=== PATIENT | male | born 1945 | race Caucasian/White ===

== ENCOUNTER 2018-06-18 02:36 | Inpatient (IN) | payer OTHER ==
[~2018-06-18] VITALS: Ht 165.1 cm; Wt 75.8 kg
[2018-06-18 03:08] LABS: APPEARANCE,URINE Clear (CLEAR); BILIRUBIN,URINE Negative (NEGATIVE); COLOR,URINE Yellow (YELLOW); GLUCOSE, URINE (UA) Negative (NEGATIVE); KETONES,URINE Negative (NEGATIVE); LEUKOCYTE ESTERASE ,URINE Negative (NEGATIVE); NITRATE,URINE Negative (NEGATIVE); OCCULT BLOOD,URINE Negative (NEGATIVE); PROTEIN,URINE Negative (NEGATIVE)
[2018-06-18 03:23] LABS: BASOPHILS % (AUTO) 0.5 % (0.0-5.0); EOSINOPHILS % (AUTO) 1.3 % (0.0-8.0); LYMPHOCYTES % (AUTO) 9.1 % (21.0-51.0); MEAN CORPUSCULAR HEMOGLOBIN 28.1 pg (27.0-33.0); MEAN CORPUSCULAR HGB CONC 33.3 g/dL (32.0-36.0); MEAN CORPUSCULAR VOLUME 84.6 fL (79-99); MONOCYTES % (AUTO) 6.5 % (3.0-13.0); NEUTROPHILS % (AUTO) 82.6 % (40.0-77.0); PLATELET COUNT (AUTO) 213 K/uL (130-400); RED BLOOD CELL COUNT(AUTO) 4.02 MIL/uL (4.50-6.20); RED CELL DISTRIBUTION WIDTH 15.1 % (11.0-15.5); WHITE BLOOD COUNT (AUTO) 6.3 K/uL (4.8-10.8)
[2018-06-18 03:35] LABS: INR 1.07 (0.85-1.15); PARTIAL THROMBOPLASTIN TIME 32.6 SEC (26.3-35.5); PROTHROMBIN TIME 11.2 SEC (9.6-11.6)
[2018-06-18] MEDS ORDERED: LEVOFLOXACIN 750 MG/D5W 150 ML 150 ML ONE (03:40)
[2018-06-18 03:41] LABS: POTASSIUM 4.1 mmol/L (3.5-5.1)
[2018-06-18 03:47] LABS: ALBUMIN 3.5 g/dL (3.5-5.0); BILIRUBIN,TOTAL 0.3 mg/dL (0.2-1.0); TOTAL PROTEIN, SERUM 6.5 g/dL (6.0-8.3)
[2018-06-18] MEDS ORDERED: DEXTROSE 50%-WATER 50 ML DISP.SYRIN IV PRN (04:30)
[2018-06-18] MEDS ORDERED: GLUCAGON 1MG KIT 1 MG ML IM PRN (04:30)
[2018-06-18] MEDS: SODIUM CHLORIDE 0.9% 1000ML 1,000 ML IV SCH ×2 (04:35→18:03)
[2018-06-18] MEDS ORDERED: ONDANSETRON HCL 4 MG/2 ML VIAL IV PRN (04:45)
[2018-06-18] MEDS ORDERED: ACETAMINOPHEN 325 MG TAB PO PRN ×2 (04:45)
[2018-06-18] MEDS ORDERED: NITROGLYCERIN 0.4 MG SL TAB SL PRN (04:45)
[2018-06-18] MEDS ORDERED: ACETAMINOPHEN 325 MG TAB ONE ×2 (04:49→07:30)
[2018-06-18] MEDS ORDERED: SODIUM CHLORIDE 3% FOR INHALATION 4 ML/AMP VIAL.NEB IH ONE (04:49)
[2018-06-18] MEDS ORDERED: IPRATROPIUM/ALBUTEROL SULFATE 3 ML SOLUTION IH ONE ×3 (04:56→13:35)
[2018-06-18 05:01] LABS: HEMOGLOBIN A1C 6.1 % (4.0-6.0)
[2018-06-18] MEDS: MEROPENEM 1 GM VIAL IVP SCH ×3 (06:00→23:30)
[2018-06-18] MEDS ORDERED: MEROPENEM 1 GM VIAL ONE (06:08)
[2018-06-18] MEDS: INSULIN HUMULIN R 100 UNIT/ML 3ML SQ SCH ×4 (07:30→20:56)
[2018-06-18] MEDS: FAMOTIDINE 20MG TAB 20 MG TAB PO SCH ×2 (09:00→21:57)
--- NOTE | 2018-06-18 10:20 | NUR ---
DYSPHAGIA EVALUATION COMPLETED. Pt WITH DIFFICULTY SWALLOWING PILLS. RECOMMEND MBSS AND MECHANICAL SOFT/CHOPPED, THIN LIQUIDS; PILLS WHOLE ONE BY ONE. PATIENT INFORMATION: Pt IS A 73 YEAR OLD MALE REFERRED FOR A BEDSIDE DYSPHAGIA EVALUATION TO RULE OUT ASPIRATION PNEUMONIA. Pt AAOX3 AND SERVED PRIMARY INFORMANT FOR MEDICAL AND SOCIAL HISTORY. Pt COOPERATIVE DURING THE EVALUATION AND REPORTS HE HAS DIFFICULTY SWALLOWING PILLS AND REGURGITATES SOME SOLID FOODS. Pt CURRENTLY ADMITTED SECONDARY TO PNEUMONIA. Pt HAS A PAST MEDICAL HISTORY SIGNIFICANT FOR HYPERTENSION, RECURRENT PNEUMONIA, ASPERGILLOSIS, DIABETES, ATRIAL FIBRILLATION ON CHRONIC ANTICOAGULATION WITH XARELTO, BILATERAL HIP BURSITIS, OBSTRUCTIVE SLEEP APNEA, NON-HODGKIN'S LYMPHOMA-ON REMISSION, IMMUNODEFICIENCY, AAA REPAIR. Pt WITH MISSING PARTIALS DURING THE EVALUATION. EVALUATION: Pt PRESENTS WITH DIFFICULTY SWALLOWING SOLIDS WITH REGURGITATION OF SOLIDS. Pt WITH ADEQUATE ORAL MOTOR COORDINATION, ROM AND STRENGTH. Pt PRESENTS WITH MULTIPLE SWALLOWS PER BOLUS WITH NO OVERT S/S OF ASPIRATION OF COUGH RESPONSE OR THROAT CLEAR. FURTHER EVALUATION IS WARRANTED AT THIS TIME TO RULE OUR SILENT ASPIRATION OR POSSIBLE ENLARGED CRICOPHARYNGEUS MUSCLE. RECOMMENDATION: 1. MBSS 2. MECHANICAL SOFT/CHOPPED, THIN LIQUIDS; PILLS WHOLE WITH LIQUIDS ONE BY ONE. RESULTS AND RECOMMENDATIONS WERE COMMUNICATED WITH NURSE MARLEN. SHE VERBALIZED AGREEMENT WITH RECOMMENDATIONS. G-CODES SWALLOWING: [id number] Addendum: 06/18/18 at 1041 by DORETHA LOPEZ, JACK ST Amended: Links added.
[2018-06-18] MEDS: RIVAROXABAN 20 MG TABLET PO SCH (11:44)
[2018-06-18] MEDS: ALLOPURINOL 100 MG TABLET PO SCH (11:44)
[2018-06-18] MEDS: BUPROPION HCL 150 MG TABLET.SA PO SCH (11:44)
[2018-06-18] MEDS ORDERED: FUROSEMIDE 20 MG TABLET PO SCH (11:44)
[2018-06-18] MEDS: GABAPENTIN 300 MG CAPSULE PO SCH ×2 (11:45→21:58)
[2018-06-18] MEDS: LOSARTAN 50 MG TABLET PO SCH (11:45)
[2018-06-18] MEDS: MAGNESIUM OXIDE 400 MG TABLET PO SCH (11:45)
[2018-06-18] MEDS: METOPROLOL TARTRATE 50 MG TAB PO SCH ×2 (11:46→21:59)
[2018-06-18] MEDS: ASPIRIN 81MG TAB.CHEW PO SCH (11:46)
--- NOTE | 2018-06-18 13:04 | NUR ---
MBSS COMPLETED. TRANSIENT PENETRATION WITH MIXED TEXTURE AND LARGE THIN LIQUID CUP SIP. RECOMMEND FULL LIQUIDS DIET WITH THIN LIQUIDS; PILLS CRUSHED WITH APPLESAUCE. PATIENT INFORMATION: Pt IS A 73 YEAR OLD MALE REFERRED FOR AN MBSS TO RULE OUT ASPIRATION PNEUMONIA. Pt AAOX3 AND SERVED PRIMARY INFORMANT FOR MEDICAL AND SOCIAL HISTORY. Pt COOPERATIVE DURING THE EVALUATION AND REPORTS HE HAS DIFFICULTY SWALLOWING PILLS AND REGURGITATES SOME SOLID FOODS. Pt CURRENTLY ADMITTED SECONDARY TO PNEUMONIA. Pt HAS A PAST MEDICAL HISTORY SIGNIFICANT FOR HYPERTENSION, RECURRENT PNEUMONIA, ASPERGILLOSIS, DIABETES, ATRIAL FIBRILLATION ON CHRONIC ANTICOAGULATION WITH XARELTO, BILATERAL HIP BURSITIS, OBSTRUCTIVE SLEEP APNEA, NON-HODGKIN'S LYMPHOMA-ON REMISSION, IMMUNODEFICIENCY, AAA REPAIR. Pt WITH MISSING PARTIALS DURING THE EVALUATION. MBSS INTERPRETATION: Pt PRESENTS WITH MODERATE-SEVERE PHARYNGEAL DYSPHAGIA CAUSED BY POSSIBLE BONY STRUCTURE AT C3-C4 CAUSING NARROWING WITHIN THE PHARYNX. Pt WITH POOLING WITHIN THE VALLECULAE, SEVERE RESIDUE IN POSTERIOR PHARYNGEAL WALL BELOW AND ABOVE C3-C4 REQUIRING MULTIPLE SWALLOWS AND LIQUID WASH TO CLEAR THE BOLUS RESIDUE, RESIDUE IN POSTERIOR WALL PENETRATING INTO AIRWAY WITH LARGE THIN LIQUID CUP SIPS AND MIXED TEXTURE (SILENT). SOLIDS AND THICKENED TEXTURES ARE INCREASINGLY DIFFICULT TO BYPASS NARROWING OF PHARYNX RESULTING IN HIGHER RISK OF PENETRATION AND/OR ASPIRATION. RECOMMENDATION: 1. FULL LIQUID DIET; THIN LIQUIDS; PILLS CRUSHED OR IN LIQUID FORM 2. COMPENSATORY STRATEGIES: *SEATED AT 90 *SMALL BITES AND SIPS *ALTERNATE BITES AND SIPS *REMAIN UPRIGHT 30 MINUTES AFTER THE MEAL 3. DIETARY CONSULT 4. ENT CONSULT RESULTS AND RECOMMENDATIONS WERE COMMUNICATED WITH NURSE MARLEN/Pt/Pt'S PARTNER. THEY VERBALIZED AGREEMENT WITH RECOMMENDATIONS AND COMPLIANCE. G-CODES SWALLOWING: [id number] Addendum: 06/18/18 at 1321 by JACK ELLSWORTH Amended: Links added.
[2018-06-18] MEDS: IPRATROPIUM/ALBUTEROL SULFATE 3 ML SOLUTION IH SCH ×3 (13:37→23:27)
[2018-06-18] MEDS ORDERED: ASPIRIN 81MG TAB.CHEW ONE (14:14)
[2018-06-18] MEDS ORDERED: METOPROLOL TARTRATE 50 MG TAB ONE (14:14)
[2018-06-18] MEDS ORDERED: LOSARTAN 50 MG TABLET ONE (14:15)
[2018-06-18] MEDS ORDERED: ACETAMINOPHEN ELIXIR 650 MG/20.3 ML UDCUP ONE (14:15)
[2018-06-18 15:20] VITALS: BP 144/67
--- NOTE | 2018-06-18 15:30 | NUR ---
HISTORY OF A-FIB Addendum: 06/18/18 at 2000 by SCOTT AUSTIN RN RN Amended: Links added.
--- NOTE | 2018-06-18 15:30 | NUR ---
NUMBNESS IN BOTH FEET AND HANDS Addendum: 06/18/18 at 2000 by SCOTT AUSTIN RN RN Amended: Links added.
[2018-06-18 19:06] VITALS: BP 148/72
[2018-06-18 20:00] VITALS: BP 148/78
[2018-06-18] MEDS: LEVOFLOXACIN 500 MG/D5W 100 ML 100 ML IV SCH (22:16)
[2018-06-18] MEDS ORDERED: ALLO100T PO (23:10)
[2018-06-18] MEDS ORDERED: CYAN10007 IJ (23:10)
[2018-06-18] MEDS ORDERED: MAGN420T PO (23:10)
[2018-06-18] MEDS ORDERED: RIVA20TA PO (23:10)
[2018-06-18] MEDS ORDERED: METO200T49 PO (23:10)
[2018-06-18] MEDS ORDERED: ZOLP12.550 PO (23:10)
[2018-06-18] MEDS ORDERED: LOPE2CAP PO (23:10)
[2018-06-18] MEDS ORDERED: FURO20TA4 PO (23:10)
[2018-06-18] MEDS ORDERED: BUPR100T13 PO (23:10)
[2018-06-18] MEDS ORDERED: LORA10TA7 PO (23:10)
[2018-06-18] MEDS ORDERED: LISI10TA7 PO (23:10)
[2018-06-18] MEDS ORDERED: OMEP-50 PO (23:10)
[2018-06-18] MEDS ORDERED: SILD100T PO (23:10)
[2018-06-18] MEDS ORDERED: GABA-533 PO (23:10)
[2018-06-18] MEDS ORDERED: ACET-66 PO (23:10)
[2018-06-18] MEDS ORDERED: TEMAZEPAM 15 MG CAPSULE PO ONE (23:30)
[2018-06-18] MEDS: ACETAMINOPHEN ELIXIR 650 MG/20.3 ML UDCUP PO PRN (23:49)
[2018-06-19] VITALS: BP 149/77
[2018-06-19] MEDS: IPRATROPIUM/ALBUTEROL SULFATE 3 ML SOLUTION IH SCH ×6 (02:03→21:29)
[2018-06-19 04:10] VITALS: BP 120/67
[2018-06-19 05:11] LABS: HEMATOCRIT 30.1 % (42-54); MEAN CORPUSCULAR HEMOGLOBIN 27.3 pg (27.0-33.0); MEAN CORPUSCULAR HGB CONC 32.5 g/dL (32.0-36.0); MEAN CORPUSCULAR VOLUME 84.1 fL (79-99); PLATELET COUNT (AUTO) 187 K/uL (130-400); RED BLOOD CELL COUNT(AUTO) 3.58 MIL/uL (4.50-6.20); RED CELL DISTRIBUTION WIDTH 14.9 % (11.0-15.5); WHITE BLOOD COUNT (AUTO) 5.3 K/uL (4.8-10.8)
[2018-06-19 05:32] LABS: ALBUMIN 2.8 g/dL (3.5-5.0); BILIRUBIN,TOTAL 0.6 mg/dL (0.2-1.0); CREATININE 0.8 mg/dL (0.5-1.5); POTASSIUM 4.1 mmol/L (3.5-5.1); TOTAL PROTEIN, SERUM 6.4 g/dL (6.0-8.3)
[2018-06-19] MEDS: INSULIN HUMULIN R 100 UNIT/ML 3ML SQ SCH ×4 (05:32→21:00)
[2018-06-19 05:33] LABS: EOSINOPHILS % (MANUAL) 1 % (1-6); LYMPHOCYTES % (MANUAL) 16 % (22-44); MAN.DIFF COMMENT-IMPRESSION MANUAL DIFFERENTIAL; MONOCYTES % (MANUAL) 4 % (2-9); PLATELET MORPHOLOGY COMMENT ADEQUATE; SEGMENTED NEUTROPHILS % 79 % (40-70)
[2018-06-19] MEDS: SODIUM CHLORIDE 0.9% 1000ML 1,000 ML IV SCH ×2 (05:46→21:31)
[2018-06-19] MEDS: MEROPENEM 1 GM VIAL IVP SCH ×3 (05:46→21:21)
[2018-06-19] MEDS: ACETAMINOPHEN ELIXIR 650 MG/20.3 ML UDCUP PO PRN ×2 (06:16→19:34)
[2018-06-19 08:00] VITALS: BP 153/83
[2018-06-19] MEDS: ALLOPURINOL 100 MG TABLET PO SCH (09:00)
[2018-06-19 12:00] VITALS: BP 154/77
--- NOTE | 2018-06-19 12:01 | NUR ---
DCP CM met with pt discussed dc plans. Pt is independent prior to admission, lives at home with significant other, winter tx from [place]. Denies any equipments/services. Pt feels safe to go back home, significant other able to assist with transportation and needs as necessary. DC plan to home once stable. CM to cont to follow up. Addendum: 06/19/18 at 1205 by MARICRUZ TOMLINSON LVN CM Amended: Links added.
[2018-06-19] MEDS: FAMOTIDINE 20MG TAB 20 MG TAB PO SCH ×2 (12:02→21:20)
[2018-06-19] MEDS: MAGNESIUM OXIDE 400 MG TABLET PO SCH (12:02)
[2018-06-19] MEDS: ASPIRIN 81MG TAB.CHEW PO SCH (12:02)
[2018-06-19] MEDS: BUPROPION HCL 150 MG TABLET.SA PO SCH (12:02)
[2018-06-19] MEDS: GABAPENTIN 300 MG CAPSULE PO SCH ×2 (12:02→21:21)
[2018-06-19] MEDS: RIVAROXABAN 20 MG TABLET PO SCH (12:03)
[2018-06-19] MEDS: METOPROLOL TARTRATE 50 MG TAB PO SCH ×2 (12:03→21:20)
[2018-06-19] MEDS: LOSARTAN 50 MG TABLET PO SCH (12:03)
[2018-06-19] MEDS: FUROSEMIDE 10 MG/1 ML SOLN UDC 10 MG/ML UDCUP PO SCH (12:04)
[2018-06-19 16:00] VITALS: BP 149/76
[2018-06-19 20:00] VITALS: BP 146/73
[2018-06-19] MEDS: LEVOFLOXACIN 500 MG/D5W 100 ML 100 ML IV SCH (22:36)
[2018-06-20] VITALS: BP 120/67
[2018-06-20] MEDS: IPRATROPIUM/ALBUTEROL SULFATE 3 ML SOLUTION IH SCH ×7 (01:08→22:52)
[2018-06-20 04:00] VITALS: BP 150/80
[2018-06-20 05:02] LABS: HEMATOCRIT 31.9 % (42-54); MEAN CORPUSCULAR HEMOGLOBIN 28.4 pg (27.0-33.0); MEAN CORPUSCULAR HGB CONC 33.3 g/dL (32.0-36.0); MEAN CORPUSCULAR VOLUME 85.4 fL (79-99); PLATELET COUNT (AUTO) 163 K/uL (130-400); RED BLOOD CELL COUNT(AUTO) 3.74 MIL/uL (4.50-6.20); RED CELL DISTRIBUTION WIDTH 14.9 % (11.0-15.5); WHITE BLOOD COUNT (AUTO) 4.6 K/uL (4.8-10.8)
[2018-06-20 05:15] LABS: CREATININE 0.9 mg/dL (0.5-1.5); POTASSIUM 4.1 mmol/L (3.5-5.1)
[2018-06-20] MEDS: INSULIN HUMULIN R 100 UNIT/ML 3ML SQ SCH ×4 (05:50→21:00)
[2018-06-20] MEDS: MEROPENEM 1 GM VIAL IVP SCH ×3 (06:16→21:46)
[2018-06-20] MEDS: ACETAMINOPHEN ELIXIR 650 MG/20.3 ML UDCUP PO PRN ×2 (07:46→21:58)
[2018-06-20 08:00] VITALS: BP 127/61
[2018-06-20] MEDS: FAMOTIDINE 20MG TAB 20 MG TAB PO SCH ×2 (09:17→21:46)
[2018-06-20] MEDS: RIVAROXABAN 20 MG TABLET PO SCH (09:17)
[2018-06-20] MEDS: GABAPENTIN 300 MG CAPSULE PO SCH ×2 (09:17→21:48)
[2018-06-20] MEDS: ASPIRIN 81MG TAB.CHEW PO SCH (09:17)
[2018-06-20] MEDS: BUPROPION HCL 150 MG TABLET.SA PO SCH (09:17)
[2018-06-20] MEDS: LOSARTAN 50 MG TABLET PO SCH (09:17)
[2018-06-20] MEDS: METOPROLOL TARTRATE 50 MG TAB PO SCH ×2 (09:18→21:48)
[2018-06-20] MEDS: MAGNESIUM OXIDE 400 MG TABLET PO SCH (09:18)
[2018-06-20] MEDS: ALLOPURINOL 100 MG TABLET PO SCH (09:18)
[2018-06-20] MEDS: SODIUM CHLORIDE 0.9% 1000ML 1,000 ML IV SCH ×2 (09:41→21:46)
--- NOTE | 2018-06-20 11:14 | NUR ---
WAS ABLE TO GET HOLD OF DR. VALDEZ FOR THE CONSULT. DR. ESQUIVEL WHO IS PICKUP DRIVER FOR TODAY VERBALIZED THAT DR. VALDEZ WILL COME TO SEE THE PATIENT TODAY.
[2018-06-20 12:00] VITALS: BP 114/76
--- NOTE | 2018-06-20 13:57 | NUR ---
DYSPHAGIA FOLLOW-UP COMPLETE. PATIENT WAS SEEN FOR A FOLLOW-UP POST MBSS RECOMMENDATIONS. MBSS COMPLETED ON 06/18/2018 RESULTED IN RECOMMENDATIONS OF A FULL LIQUID/THIN LIQUID DIET SECONDARY TO PHARYNGEAL DYSPHAGIA. PATIENT STATES HE HAD RECURRENT DIARRHEA SECONDARY TO FULL LIQUID DIET. DIET WAS MODIFIED TO PUREED TEXTURE WITH THIN LIQUIDS. PATIENT STATES HE CONSUMES PUREED TEXTURE WITH NO CONCERNS. PRODUCTION SUPERINTENDENT HYDRO REVIEWED MBSS RECOMMENDATIONS WITH PATIENT. PATIENT VERBALIZED COMPREHENSION HOWEVER, STATES HE WOULD LIKE TO CONTINUE WITH PUREED DIET, AT THIS TIME, HE ONLY HAS DIFFICULTY WITH REGULAR TEXTURES. Addendum: 06/20/[address] JACQUELINE SALCEDO Amended: Links added.
[2018-06-20] MEDS: FUROSEMIDE 10 MG/1 ML SOLN UDC 10 MG/ML UDCUP PO SCH (14:54)
[2018-06-20 16:00] VITALS: BP 134/69
[2018-06-20 20:00] VITALS: BP 139/79
[2018-06-20] MEDS: LEVOFLOXACIN 500 MG/D5W 100 ML 100 ML IV SCH (21:47)
--- NOTE | 2018-06-20 22:00 | NUR ---
MEDS PT'S FAMILY JUST LEFT FOR THE NIGHT. DUE PO MEDS CRUSHED AND GIVEN WITH APPLE SAUCE, TOLERATED WELL. DUE IV ANTIBIOTIC AND NEW IV BAG HUNG. PT VERBALIZES NEED FOR SLEEPING PILL HE COULD NOT SUSTAIN SLEEP FOR MORE THAN 3 HOURS. ASSURED PTT O CALL MD FOR MED. KEPT RESTED IN CHAIR. WILL MONITOR PT.
[2018-06-20] MEDS ORDERED: TEMAZEPAM 15 MG CAPSULE PO PRN (23:00)
--- NOTE | 2018-06-20 23:00 | NUR ---
MOTOR REBUILDER PAGED ABIMAEL, MOTOR REBUILDER FOR HOSPITALIST,VIA ANSWERING SERVICE AND REFERRED PT REQUEST FOR SLEEPING PILL. NEW MED ORDER GIVEN. MEDICATED PT, TOLERATED WELL. MEDICAL RECORD REQUEST FORM SIGNED BY PT, WITNESSED BY ASSIGNMENT OFFICER. PLACED FORM IN CHART. KEPT COMFORTABLE IN BED. CALL LIGHT WITHIN REACH. RE-ITERATED FALL PRECAUTIONS, PT VERBALIZES UNDERSTANDING.
[2018-06-20] MEDS ORDERED: TEMAZEPAM 15 MG CAPSULE ONE (23:08)
[2018-06-21] VITALS: BP 92/48
--- NOTE | 2018-06-21 02:00 | NUR ---
ROUNDS PT FAIRLY ASLEEP WITH RESPIRATIONS EVEN AND UNLABORED. NO NOTED DISTRESS. KEPT UNDISTURBED FOR NOW. WILL MONITOR PT.
[2018-06-21] MEDS: IPRATROPIUM/ALBUTEROL SULFATE 3 ML SOLUTION IH SCH ×6 (02:24→22:29)
[2018-06-21] MEDS: SODIUM CHLORIDE 0.9% 1000ML 1,000 ML IV SCH ×3 (02:35→23:52)
[2018-06-21 04:00] VITALS: BP 134/82
[2018-06-21 05:24] LABS: HEMATOCRIT 31.9 % (42-54); MEAN CORPUSCULAR HEMOGLOBIN 28.2 pg (27.0-33.0); MEAN CORPUSCULAR HGB CONC 33.6 g/dL (32.0-36.0); MEAN CORPUSCULAR VOLUME 83.7 fL (79-99); PLATELET COUNT (AUTO) 199 K/uL (130-400); RED BLOOD CELL COUNT(AUTO) 3.81 MIL/uL (4.50-6.20); RED CELL DISTRIBUTION WIDTH 14.8 % (11.0-15.5); WHITE BLOOD COUNT (AUTO) 3.9 K/uL (4.8-10.8)
[2018-06-21] MEDS: MEROPENEM 1 GM VIAL IVP SCH ×3 (05:58→21:53)
[2018-06-21] MEDS: INSULIN HUMULIN R 100 UNIT/ML 3ML SQ SCH ×4 (06:02→20:09)
[2018-06-21 08:00] VITALS: BP 133/78
[2018-06-21] MEDS: FUROSEMIDE 10 MG/1 ML SOLN UDC 10 MG/ML UDCUP PO SCH (08:44)
[2018-06-21] MEDS: MAGNESIUM OXIDE 400 MG TABLET PO SCH (08:45)
[2018-06-21] MEDS: ALLOPURINOL 100 MG TABLET PO SCH (08:45)
[2018-06-21] MEDS: ASPIRIN 81MG TAB.CHEW PO SCH (08:45)
[2018-06-21] MEDS: RIVAROXABAN 20 MG TABLET PO SCH (08:45)
[2018-06-21] MEDS: GABAPENTIN 300 MG CAPSULE PO SCH ×2 (08:45→21:51)
[2018-06-21] MEDS: FAMOTIDINE 20MG TAB 20 MG TAB PO SCH ×2 (08:45→21:53)
[2018-06-21] MEDS: BUPROPION HCL 150 MG TABLET.SA PO SCH (08:45)
[2018-06-21] MEDS: METOPROLOL TARTRATE 50 MG TAB PO SCH ×2 (08:46→21:53)
[2018-06-21] MEDS: LOSARTAN 50 MG TABLET PO SCH (08:48)
[2018-06-21 12:00] VITALS: BP 125/67
[2018-06-21] MEDS: ACETAMINOPHEN ELIXIR 650 MG/20.3 ML UDCUP PO PRN ×2 (13:08→21:48)
[2018-06-21 16:00] VITALS: BP 138/81
[2018-06-21 20:00] VITALS: BP 131/75
[2018-06-21] MEDS: TEMAZEPAM 15 MG CAPSULE PO PRN (21:52)
[2018-06-21] MEDS: LEVOFLOXACIN 500 MG/D5W 100 ML 100 ML IV SCH (23:52)
[2018-06-22] VITALS: BP 112/69
[2018-06-22] MEDS: IPRATROPIUM/ALBUTEROL SULFATE 3 ML SOLUTION IH SCH ×6 (02:00→21:55)
[2018-06-22 04:00] VITALS: BP 140/89
[2018-06-22] MEDS: ACETAMINOPHEN ELIXIR 650 MG/20.3 ML UDCUP PO PRN ×3 (04:04→20:40)
[2018-06-22 05:01] LABS: HEMATOCRIT 35.1 % (42-54); MEAN CORPUSCULAR HEMOGLOBIN 28.2 pg (27.0-33.0); MEAN CORPUSCULAR HGB CONC 33.4 g/dL (32.0-36.0); MEAN CORPUSCULAR VOLUME 84.6 fL (79-99); PLATELET COUNT (AUTO) 210 K/uL (130-400); RED BLOOD CELL COUNT(AUTO) 4.15 MIL/uL (4.50-6.20); RED CELL DISTRIBUTION WIDTH 14.7 % (11.0-15.5); WHITE BLOOD COUNT (AUTO) 3.5 K/uL (4.8-10.8)
[2018-06-22 05:19] LABS: CREATININE 1.1 mg/dL (0.5-1.5); POTASSIUM 3.9 mmol/L (3.5-5.1)
[2018-06-22] MEDS: MEROPENEM 1 GM VIAL IVP SCH (06:42)
[2018-06-22] MEDS: INSULIN HUMULIN R 100 UNIT/ML 3ML SQ SCH ×4 (06:42→20:28)
[2018-06-22 08:00] VITALS: BP 122/67
--- NOTE | 2018-06-22 08:32 | NUR ---
DR. ALENA ADKINS; RE; MECHANICAL SWALLOWING DIFFICULTIES, MBSS FAILED.
--- NOTE | 2018-06-22 08:49 | NUR ---
DR. CARVAJAL CALLED BACK STATES WANTS FIBEROPTIC ENDOSCOPE AT BEDSIDE TO VIEW THE LARYNX. NO OTHER ORDERS.
--- NOTE | 2018-06-22 08:50 | NUR ---
JETHRO BELL AWARE OF THE NEED OF F.O. ENDOSCOPE STATES WILL TAKE TO FLOOR IN A COUPLE OF MINUTES.
[2018-06-22] MEDS: BUPROPION HCL 150 MG TABLET.SA PO SCH (10:37)
[2018-06-22] MEDS: ASPIRIN 81MG TAB.CHEW PO SCH (10:37)
[2018-06-22] MEDS: LOSARTAN 50 MG TABLET PO SCH (10:37)
[2018-06-22] MEDS: METOPROLOL TARTRATE 50 MG TAB PO SCH ×2 (10:38→20:27)
[2018-06-22] MEDS: RIVAROXABAN 20 MG TABLET PO SCH (10:38)
[2018-06-22] MEDS: GABAPENTIN 300 MG CAPSULE PO SCH ×2 (10:38→20:28)
[2018-06-22] MEDS: ALLOPURINOL 100 MG TABLET PO SCH (10:39)
[2018-06-22] MEDS: FAMOTIDINE 20MG TAB 20 MG TAB PO SCH ×2 (10:39→20:28)
[2018-06-22] MEDS: MAGNESIUM OXIDE 400 MG TABLET PO SCH (10:39)
[2018-06-22] MEDS: FUROSEMIDE 10 MG/1 ML SOLN UDC 10 MG/ML UDCUP PO SCH (10:40)
[2018-06-22] MEDS: SODIUM CHLORIDE 0.9% 1000ML 1,000 ML IV SCH ×2 (10:44→22:11)
[2018-06-22] MEDS: CLINDAMYCIN 600 MG/D5% WATER 50 ML IV SCH ×3 (10:47→22:57)
[2018-06-22 11:34] VITALS: BP 121/75
--- NOTE | 2018-06-22 13:17 | NUR ---
TREATMENT COMPLETED. GOALS ADDED AT THIS TIME: DYSPHAGIA THERAPY 3-5X WEEK TO INCREASE ORAL MOTOR STRENGTH AND PHARYNGEAL SWALLOW: LTG#1: Pt WILL TOLERATE LEAST RESTRICTIVE DIET TO MEET NUTRITION/HYDRATION WITH NO S/S OF ASPIRATION. LTG#2: SKILLED EDUCATION Pt/FAMILY/STAFF STG#1: Pt WILL PARTICIPATE IN FULL LIQUIDS, THIN LIQUIDS PILLS CRUSHED WITH NO S/S OF ASPIRATION. STG#2: Pt WILL PARTICIPATE IN PLEASURE FEEDS OF MECH SOFT CONSISTENCY WITH NO S/S OF ASPIRATION. STG#3: PT WILL COMPLETE EFFORTFUL SWALLOW WITH 100% ACCURACY. STG#4: Pt WILL LARYNGEAL EXERCISES WITH 80% ACCURACY. STG#5: Pt WILL DEMONSTRATE UNDERSTANDING AND COMPLETION OF HOME PROGRAM INDEPENDENTLY. STG#6: SKILLED EDUCATION Pt/FAMILY/STAFF. S: Pt SEATED IN CHAIR DURING THE SESSION. Pt COOPERATIVE AND REQUESTING EXERCISES TO BE COMPLETED TO BE ABLE TO EAT SOLIDS. Pt STATES HE WILL FOLLOW UP WITH WELDING EQUIPMENT REPAIRER TO DETERMINE PLAN OF CARE FOR POSSIBLE OSTEOPHYTE IN NECK PER ENT RECOMMENDATIONS. O: Pt COMPLETING DYSPHAGIA GOALS TARGETING STRENGTHENING OF LARYNX AT THIS TIME. RESULTS ARE FOLLOWS: STG#1: Pt WILL PARTICIPATE IN FULL LIQUIDS, THIN LIQUIDS PILLS CRUSHED WITH NO S/S OF ASPIRATION: 10 TRIALS WITH NO S/S OF ASPIRATION. STG#2: Pt WILL PARTICIPATE IN PLEASURE FEEDS OF MECH SOFT CONSISTENCY WITH NO S/S OF ASPIRATION: Pt WITH COUGHING AND BRINGING SOLID BACK IN 3/5 TRIALS; Pt INSTRUCTED TO MASTICATE SOLIDS LONGER AND ALTERNATE BITES AND SIPS. STG#3: PT WILL COMPLETE EFFORTFUL SWALLOW WITH 100% ACCURACY: X10 WITH 80% ACCURACY. STG#4: Pt WILL LARYNGEAL EXERCISES WITH 80% ACCURACY: 80% ACCURACY STG#5: Pt WILL DEMONSTRATE UNDERSTANDING AND COMPLETION OF HOME PROGRAM INDEPENDENTLY: VERBALIZED AND DEMONSTRATED UNDERSTANDING WITH 80% ACCURACY. STG#6: SKILLED EDUCATION Pt/FAMILY/STAFF: Pt EDUCATED ON RISKS AND CONSEQUENCES OF ASPIRATION. A: Pt WITH GOOD PARTICIPATION AND COOPERATION DURING EXERCISES. Pt TOLERATING DIET WELL. P: TOMB MAKER HELPER PROVIDED Pt WITH HOME PROGRAM TO BE COMPLETED. Pt VERBALIZED UNDERSTANDING AND AGREEMENT. TOMB MAKER HELPER CONTINUED TO RECOMMEND PILLS CRUSHED AT THIS TIME. HE VERBALIZED UNDERSTANDING. TOMB MAKER HELPER TO CONTINUE ESTABLISHED PLAN OF CARE. TOMB MAKER HELPER COORDINATED CARE WITH NURSE TOBIN. ALL QUESTIONS ANSWERED AT THIS TIME. Addendum: 06/22/18 at 1328 by DORETHA LOPEZ, SPT ST Amended: Links added.
[2018-06-22 16:00] VITALS: BP 136/77
--- NOTE | 2018-06-22 17:16 | NUR ---
RD Notification Patient with osteophyte in neck causing difficulty swallowing. Patient seen by GROCERY CADDY. Patient with Full liquid diet in place. Rec to add Ensure TID with meals for increased nutritional intake. Patient reports no GI distress. Patient PO intake at 75% as per EMR. Patient LBM 06/22/18. Patient monitored labs: Glu 127, Alb 2.8. RD notification received for recommended foods;RD to follow up. RD to continue to monitor. Addendum: 06/22/18 at [address] Amended: Links added.
[2018-06-22 19:12] VITALS: BP 112/78
[2018-06-22] MEDS: TEMAZEPAM 15 MG CAPSULE PO PRN (20:39)
--- NOTE | 2018-06-22 22:11 | NUR ---
REQUEST NEW IV BAG HUNG. PT REQUESTED TO NOT BE BOTHERED WITH V/S MONITORING AT IN IF HE IS ASLEEP. CLAIMS HE HAS NOT BEEN HAVING ANY SUSTAINED SLEEP SINCE ADMISSION. PCP MADE AWARE. KEPT RESTED AND COMFORTABLE. CALL LIGHT WITHIN REACH. WILL MONITOR PT.
[2018-06-23] MEDS: IPRATROPIUM/ALBUTEROL SULFATE 3 ML SOLUTION IH SCH ×4 (01:20→13:54)
--- NOTE | 2018-06-23 02:00 | NUR ---
ROUNDS PT RESTING WELL, FAIRLY ASLEEP WITH RESPIRATIONS EVEN AND UNLABORED. NO DISTRESS NOTED. KEPT UNDISUTRBED FOR NOW. WILL MONITOR PT.
[2018-06-23 03:15] VITALS: BP_SYST 137; BP_SYST 99; BP_DIAS 57; BP_DIAS 75
[2018-06-23] MEDS: SODIUM CHLORIDE 0.9% 1000ML 1,000 ML IV SCH ×2 (04:01→08:49)
[2018-06-23] MEDS: CLINDAMYCIN 600 MG/D5% WATER 50 ML IV SCH ×2 (04:01→08:39)
[2018-06-23 04:57] LABS: EOSINOPHILS % (AUTO) 3.2 % (0.0-8.0); LYMPHOCYTES % (AUTO) 30.3 % (21.0-51.0); MEAN CORPUSCULAR HEMOGLOBIN 27.7 pg (27.0-33.0); MEAN CORPUSCULAR VOLUME 83.8 fL (79-99); NEUTROPHILS % (AUTO) 53.5 % (40.0-77.0); PLATELET COUNT (AUTO) 200 K/uL (130-400); RED BLOOD CELL COUNT(AUTO) 3.82 MIL/uL (4.50-6.20); RED CELL DISTRIBUTION WIDTH 14.8 % (11.0-15.5); WHITE BLOOD COUNT (AUTO) 3.4 K/uL (4.8-10.8)
--- NOTE | 2018-06-23 05:00 | NUR ---
ROUNDS PT ALREADY AWAKE, READING HIS BOOK. DENIES ANY CONCERNS AT THIS TIME. NO NOTED DISTRESS. KEPT RESTED AND COMFORTABLE. FOR MORE CARE.
[2018-06-23 05:26] LABS: CREATININE 0.9 mg/dL (0.5-1.5); POTASSIUM 3.9 mmol/L (3.5-5.1)
[2018-06-23] MEDS: INSULIN HUMULIN R 100 UNIT/ML 3ML SQ SCH (06:04)
[2018-06-23] MEDS: ACETAMINOPHEN ELIXIR 650 MG/20.3 ML UDCUP PO PRN (07:45)
[2018-06-23 08:00] VITALS: BP 132/93
[2018-06-23] MEDS: MAGNESIUM OXIDE 400 MG TABLET PO SCH (08:31)
[2018-06-23] MEDS: ASPIRIN 81MG TAB.CHEW PO SCH (08:32)
[2018-06-23] MEDS: ALLOPURINOL 100 MG TABLET PO SCH (08:32)
[2018-06-23] MEDS: METOPROLOL TARTRATE 50 MG TAB PO SCH (08:32)
[2018-06-23] MEDS: LOSARTAN 50 MG TABLET PO SCH (08:32)
[2018-06-23] MEDS: FAMOTIDINE 20MG TAB 20 MG TAB PO SCH (08:33)
[2018-06-23] MEDS: GABAPENTIN 300 MG CAPSULE PO SCH (08:33)
[2018-06-23] MEDS: BUPROPION HCL 150 MG TABLET.SA PO SCH (08:34)
[2018-06-23] MEDS: RIVAROXABAN 20 MG TABLET PO SCH (08:34)
[2018-06-23 11:00] VITALS: BP 134/60
[2018-06-23] MEDS ORDERED: LEVO250S3 PO (13:45)
--- NOTE | 2018-06-23 16:35 | NUR ---
PT DISCHARGED HOME USING TEACH BACK TECHNIQUE RE; NEW MEDS, HOME MEDS, S/S TO WATCH FOR AND WHEN TO CALL MD AND 911. AOX3, IV OUT INTACT, IN NO DISTRESS, COGNIZANT OF PLAN OF CARE AFTER DISCHARGE HOME AND WHO TO FOLLOW UP WITH. FOLLOW UP WITH THE [facility] IN 3-[address] UP [address] SUAZO ([facility]) ON 06/25/2018, AT 09:30AM. AT PHONE [phone]. FOLLOW UP WITH [facility] ON 07/07/18 AT 09:45AM CALL PHONE NUMBER AT [phone]. CALL YOUR PRIMARY DOCTOR IF SHORTNESS OF BREATH AND CONGESTION WORSENS. CALL YOUR PRIMARY DOCTOR IF FEVERS GREATER THAN 101.0. CALL 911 IF CHEST PAIN OR SHORTNESS OF BREATH DOES NOT RESOLVE WITH REST. MAKE SURE TO COMPLETE FULL COURSE OF ANTIBIOTIC TO PREVENT SUPER INFECTION.
== END 2018-06-23 16:35 | disposition home or self-care (01) | DRG 178 ==
LOC: EDH 02:36 → EDHIP 04:22 → 3BH 15:51
PROVIDERS: ADMIT Internal Medicine; ATTEND Internal Medicine
DX: J69.0 Pneumonitis due to inhalation of food and vomit (principal); E87.1 Hypo-osmolality and hyponatremia; I48.2 Chronic atrial fibrillation; E11.9 Type 2 diabetes mellitus without complications; G47.33 Obstructive sleep apnea (adult) (pediatric); I10 Essential (primary) hypertension; J34.2 Deviated nasal septum; L80 Vitiligo; M70.71 Other bursitis of hip, right hip; M70.72 Other bursitis of hip, left hip; R09.02 Hypoxemia; M46.92 Unspecified inflammatory spondylopathy, cervical region; D17.0 Benign lipomatous neoplasm of skin and subcutaneous tissue of head, face and neck; Z79.01 Long term (current) use of anticoagulants; Z83.3 Family history of diabetes mellitus; Z86.79 Personal history of other diseases of the circulatory system; Z88.0 Allergy status to penicillin
CPT/HCPCS: 36415; 71045; 74230; 80048; 80053; 81003; 82948; 83036; 83605; 84145; 85025; 85027; 85610; 85730; 86140; 87040; 87071; 87205; 87486; 87581; 87633; 87798; 87804; 92507; 92610; 92611; 93005; 94640; 94664; G0378; J1956; J2185; J3490; J7030

== ENCOUNTER → 2019-02-24 | Outpatient (CLI) | payer OTHER ==
[~2019-02-24] MED LIST: ACET-66 PO; ALLO100T PO; BUPR100T13 PO; CYAN10007 IJ; FURO20TA4 PO; GABA-533 PO; LEVO250S3 PO; LISI10TA7 PO; LOPE2CAP PO; LORA10TA7 PO; MAGN420T PO; METO200T49 PO; OMEP-298 PO; RIVA20TA PO; SILD100T PO; ZOLP12.550 PO
--- NOTE | 2019-02-24 10:00 | NUR ---
MBSS COMPLETED. SHALLOW PENETRATION WITH LARGE CUP SIP OF THIN LIQUIDS, NO ASPIRATION DURING THE SWALLOW.RECOMMEND PLEASURE FEEDS OF MECHANICAL SOFT/GROUND (WET TEXTURES), THIN LIQUIDS VIA SMALL CUP SIPS, PILLS CRUSHED VIA PEG. RECOMMENDATIONS: 1. SKILLED SPEECH THERAPY RECOMMENDED 2-3X WEEK TARGETING PHARYNGEAL PHASE OF SWALLOW. DATA SCIENCE AND IOT MANAGER PROVIDED Pt WITH HANDOUT OF EXERCISES TO COMPLETE HOME PROGRAM (EXERCISES WERE EXPLAINED AND DEMONSTRATED). RESULTS AND RECOMMENDATIONS WERE PROVIDED. ALL QUESTIONS ANSWERED AT THIS TIME. SKILLED SPEECH THERAPY IS HIGHLY RECOMMENDED AT THIS TIME. Addendum: 02/24/19 at 1323 by DORETHA LOPEZ, [facility] ST Amended: Links added.
== END | disposition home or self-care (01) ==
LOC: RAH 09:54
DX: R13.13 Dysphagia, pharyngeal phase (principal)
CPT/HCPCS: 74230; 92611

== ENCOUNTER 2019-03-06 09:20 | Emergency (ER) | payer OTHER | END 2019-03-06 10:59 | disposition home or self-care (01) | LOC: EDH 09:20 | DX: K94.23 Gastrostomy malfunction (principal); Z88.0 Allergy status to penicillin; I10 Essential (primary) hypertension; I48.91 Unspecified atrial fibrillation; Z98.890 Other specified postprocedural states | CPT/HCPCS: 99281 ==

== ENCOUNTER 2019-03-08 10:59 | Emergency (ER) | payer OTHER ==
[2019-03-08] MEDS ORDERED: DIATR MEGLU/DIATRIZOATE SODIUM 30 ML BOTTLE ONE (12:33)
== END 2019-03-08 13:31 | disposition home or self-care (01) ==
LOC: EDH 10:59
DX: Z46.59 Encounter for fitting and adjustment of other gastrointestinal appliance and device (principal); I48.91 Unspecified atrial fibrillation; Z88.0 Allergy status to penicillin; Z98.890 Other specified postprocedural states
CPT/HCPCS: 43762; 74018; 99284; Q9963

== ENCOUNTER 2019-04-07 14:55 | Emergency (ER) | payer OTHER ==
[~2019-04-07 14:55] MED LIST changes: -OMEP-298 PO; +OMEP20CA12 PO
[2019-04-07] MEDS ORDERED: DIATR MEGLU/DIATRIZOATE SODIUM 30 ML BOTTLE ONE (16:58)
== END 2019-04-07 17:39 | disposition home or self-care (01) ==
LOC: EDH 14:55
DX: Z43.1 Encounter for attention to gastrostomy (principal); I10 Essential (primary) hypertension; I48.91 Unspecified atrial fibrillation; Z88.0 Allergy status to penicillin; Z85.72 Personal history of non-Hodgkin lymphomas
CPT/HCPCS: 43762; 74018; 99284; Q9963

== ENCOUNTER 2019-04-21 05:49 | Day surgery (SDC) | payer OTHER ==
[~2019-04-21] VITALS: Ht 177.8 cm; Wt 88.0 kg
[2019-04-21] VITALS (8 sets, daily range): BP systolic 107–125; BP diastolic 59–75
[2019-04-21] MEDS ORDERED: SODIUM CHLORIDE 0.9% 1000ML 1,000 ML IV ONE (06:22)
[2019-04-21] MEDS ORDERED: IPRATROPIUM/ALBUTEROL SULFATE 3 ML SOLUTION IH ONE (06:41)
== END 2019-04-21 08:30 | disposition home or self-care (01) ==
LOC: ENDO 05:49 → DAH 05:49 → ENDO 08:30
PROVIDERS: ATTEND Internal Medicine Gastroenterology
DX: K94.20 Gastrostomy complication, unspecified (principal); K29.50 Unspecified chronic gastritis without bleeding; R13.10 Dysphagia, unspecified; I48.0 Paroxysmal atrial fibrillation; I10 Essential (primary) hypertension; M19.90 Unspecified osteoarthritis, unspecified site; Z88.8 Allergy status to other drugs, medicaments and biological substances; Z88.1 Allergy status to other antibiotic agents; Z88.0 Allergy status to penicillin; Z85.72 Personal history of non-Hodgkin lymphomas; Z98.890 Other specified postprocedural states; Z72.89 Other problems related to lifestyle; Z79.899 Other long term (current) drug therapy; Z79.2 Long term (current) use of antibiotics; Z83.3 Family history of diabetes mellitus
CPT/HCPCS: 43239; 43246; 88305; 94640; A4215; A4221; A4222; A4223; A4606; A4615; A4663; J7030

== ENCOUNTER → 2022-04-29 | Outpatient (CLI) | payer OTHER ==
[~2022-04-29] MED LIST changes: -ACET-66 PO; +ALBU1.252 IH; +AMIL5TAB8 PO; -BUPR100T13 PO; +BUPR75TA8 PO; +CARV3.1262 PO; -CYAN10007 IJ; -FURO20TA4 PO; -GABA-533 PO; +GABA250S2 PO; +LACT1CAP79 PO; -LEVO250S3 PO; -LISI10TA7 PO; -LOPE2CAP PO; -LORA10TA7 PO; -MAGN420T PO; -METO200T49 PO; +PANT40TA PO; -RIVA20TA PO; -SILD100T PO; +TORS10TA18 PO; -ZOLP12.550 PO
== END | disposition home or self-care (01) ==
LOC: RAH 09:17
PROVIDERS: ATTEND Internal Medicine Gastroenterology
DX: R94.5 Abnormal results of liver function studies (principal); R93.2 Abnormal findings on diagnostic imaging of liver and biliary tract; R16.1 Splenomegaly, not elsewhere classified; Z95.828 Presence of other vascular implants and grafts
CPT/HCPCS: 76700; 93975

== ENCOUNTER 2022-05-02 16:32 | Inpatient (IN) | payer OTHER ==
[~2022-05-02] VITALS: Ht 177.8 cm; Wt 81.6 kg
[2022-05-02 20:01] LABS: HEMATOCRIT 29.8 % (42-54); MEAN CORPUSCULAR HEMOGLOBIN 26.3 pg (27.0-33.0); MEAN CORPUSCULAR HGB CONC 30.5 g/dL (32.0-36.0); MEAN CORPUSCULAR VOLUME 86.1 fL (79-99); PLATELET COUNT (AUTO) 221 K/uL (130-400); RED BLOOD CELL COUNT(AUTO) 3.46 MIL/uL (4.50-6.20); RED CELL DISTRIBUTION WIDTH 14.6 % (11.0-15.5); WHITE BLOOD COUNT (AUTO) 5.5 K/uL (4.8-10.8)
[2022-05-02 20:14] LABS: CREATININE 1.5 mg/dL (0.5-1.5); HEMOGLOBIN A1C 5.6 % (4.0-6.0); POTASSIUM 4.1 mmol/L (3.5-5.1)
[2022-05-02 20:27] LABS: ALBUMIN 3.2 g/dL (3.5-5.0); THYROID STIMULATING HORMONE 2.74 uIU/mL (0.36-3.74); TOTAL PROTEIN, SERUM 7.1 g/dL (6.0-8.3)
[2022-05-02] MEDS ORDERED: TORS10TA18 PO (22:13)
[2022-05-02] MEDS ORDERED: LACTULOSE 20 GM/30 ML UDCUP PO PRN (22:30)
[2022-05-02] MEDS ORDERED: ALBUTEROL 0.083% 2.5 MG/3 ML INH IH PRN (22:30)
[2022-05-02] MEDS ORDERED: MAG/ALUM/SIMETH 30 ML UDCUP PO PRN (22:30)
[2022-05-02] MEDS ORDERED: ACETAMINOPHEN WITH CODEINE 1 TAB TAB PO PRN (22:30)
[2022-05-02] MEDS ORDERED: ONDANSETRON ODT 4MG TAB SL PRN (22:30)
[2022-05-02] MEDS ORDERED: ACETAMINOPHEN 325 MG TAB PO PRN (22:30)
[2022-05-02] MEDS ORDERED: MORPHINE 2 MG SYG IVP PRN (22:30)
[2022-05-03] VITALS (7 sets, daily range): BP systolic 107–142; BP diastolic 59–79
[2022-05-03 03:43] LABS: CREATININE 1.3 mg/dL (0.5-1.5); MAGNESIUM 1.8 mg/dL (1.80-2.40)
[2022-05-03] MEDS: PANTOPRAZOLE 40 MG TAB DR PO SCH (09:00)
[2022-05-03] MEDS ORDERED: CARVEDILOL 3.125 MG TABLET PO SCH (09:00)
[2022-05-03] MEDS: AMILORIDE 5MG TAB PO SCH (09:00)
[2022-05-03] MEDS: GABAPENTIN 100 MG CAPSULE PO SCH (21:35)
[2022-05-04] VITALS (17 sets, daily range): BP systolic 114–159; BP diastolic 62–77
[2022-05-04] MEDS: ACETAMINOPHEN 325 MG/10.15ML UDCUP PO PRN ×3 (00:07→21:07)
[2022-05-04 08:19] LABS: INR 1.07 (0.85-1.15); PROTHROMBIN TIME 11.6 SEC (9.6-11.6)
[2022-05-04 08:20] LABS: PARTIAL THROMBOPLASTIN TIME 33.6 SEC (26.3-35.5)
[2022-05-04] MEDS ORDERED: LIDOCAINE PF 100MG/5ML (2%) SYRINGE 5ML ONE (08:54)
[2022-05-04] MEDS ORDERED: PROPOFOL 10 MG/ML 20ML VIAL IV ONE (08:54)
[2022-05-04] MEDS: PANTOPRAZOLE 40 MG TAB DR PO SCH (10:09)
[2022-05-04] MEDS: AMILORIDE 5MG TAB PO SCH (10:10)
[2022-05-04] MEDS: GABAPENTIN 100 MG CAPSULE PO SCH (20:58)
[2022-05-05] VITALS (14 sets, daily range): BP systolic 115–153; BP diastolic 49–91
[2022-05-05 04:22] LABS: HEMATOCRIT 28.7 % (42-54); MEAN CORPUSCULAR HEMOGLOBIN 26.3 pg (27.0-33.0); MEAN CORPUSCULAR HGB CONC 30.7 g/dL (32.0-36.0); MEAN CORPUSCULAR VOLUME 85.9 fL (79-99); RED BLOOD CELL COUNT(AUTO) 3.34 MIL/uL (4.50-6.20); RED CELL DISTRIBUTION WIDTH 14.6 % (11.0-15.5); WHITE BLOOD COUNT (AUTO) 4.3 K/uL (4.8-10.8)
[2022-05-05 04:33] LABS: CREATININE 1.2 mg/dL (0.5-1.5)
[2022-05-05] MEDS: PANTOPRAZOLE 40 MG TAB DR PO SCH (07:54)
[2022-05-05] MEDS: AMILORIDE 5MG TAB PO SCH (07:54)
[2022-05-05] MEDS ORDERED: RIVA20TA PO (07:56)
[2022-05-05] MEDS: GABAPENTIN 100 MG CAPSULE PO SCH (21:10)
[2022-05-06 03:24] VITALS: BP 120/59
[2022-05-06 03:46] LABS: HEMATOCRIT 29.1 % (42-54); MEAN CORPUSCULAR HEMOGLOBIN 26.1 pg (27.0-33.0); MEAN CORPUSCULAR HGB CONC 30.9 g/dL (32.0-36.0); MEAN CORPUSCULAR VOLUME 84.3 fL (79-99); RED BLOOD CELL COUNT(AUTO) 3.45 MIL/uL (4.50-6.20); RED CELL DISTRIBUTION WIDTH 14.4 % (11.0-15.5); WHITE BLOOD COUNT (AUTO) 4.9 K/uL (4.8-10.8)
[2022-05-06 04:00] LABS: CREATININE 1.1 mg/dL (0.5-1.5); POTASSIUM 3.8 mmol/L (3.5-5.1)
[2022-05-06 06:45] VITALS: BP 130/69
[2022-05-06] MEDS ORDERED: LIDOCAINE HCL 2% VISCOUS 15 ML UDCUP PO SCH (07:22)
[2022-05-06] MEDS ORDERED: PHENYLEPHRINE HCL 10 MG/ML 1ML VIAL IV ONE (07:24)
[2022-05-06] MEDS ORDERED: PROPOFOL 10 MG/ML 20ML VIAL IV ONE (07:24)
[2022-05-06] MEDS ORDERED: LIDOCAINE PF 100MG/5ML (2%) SYRINGE 5ML ONE (07:24)
[2022-05-06] MEDS ORDERED: 0.9%NACL 1000ML 1,000 ML IV ONE (07:48)
[2022-05-06] MEDS: AMILORIDE 5MG TAB PO SCH (08:46)
[2022-05-06] MEDS: PANTOPRAZOLE 40 MG TAB DR PO SCH (08:46)
== END 2022-05-06 11:49 | disposition home or self-care (01) | DRG 291 ==
LOC: EDH 16:32 → EDHIP 16:33 → DIRECT 16:34 → 2AH 23:30
PROVIDERS: ADMIT Internal Medicine; ATTEND Internal Medicine
PROC: 0DB78ZX Excision of Stomach, Pylorus, Via Natural or Artificial Opening Endoscopic, Diagnostic (ICD-10-PCS; principal; 2022-05-04)
PROC: 0BH17EZ Insertion of Endotracheal Airway into Trachea, Via Natural or Artificial Opening (ICD-10-PCS; 2022-05-06)
DX: I11.0 Hypertensive heart disease with heart failure (principal); I50.43 Acute on chronic combined systolic (congestive) and diastolic (congestive) heart failure; D68.69 Other thrombophilia; I48.20 Chronic atrial fibrillation, unspecified; E44.0 Moderate protein-calorie malnutrition; C85.90 Non-Hodgkin lymphoma, unspecified, unspecified site; I25.810 Atherosclerosis of coronary artery bypass graft(s) without angina pectoris; Z20.822 Contact with and (suspected) exposure to COVID-19; I95.1 Orthostatic hypotension; R13.12 Dysphagia, oropharyngeal phase; G62.9 Polyneuropathy, unspecified; E78.5 Hyperlipidemia, unspecified; K21.9 Gastro-esophageal reflux disease without esophagitis; D50.9 Iron deficiency anemia, unspecified; Z79.01 Long term (current) use of anticoagulants; Z95.5 Presence of coronary angioplasty implant and graft; Z95.1 Presence of aortocoronary bypass graft; Z93.1 Gastrostomy status; Z68.25 Body mass index [BMI] 25.0-25.9, adult
CPT/HCPCS: 31500; 36415; 43239; 71045; 80048; 80053; 83036; 83735; 84443; 85027; 85610; 85730; 87635; 92610; 93312; 94664; 96374; 97039; G0378; J2001; J2370; J2704; J7030